=== PATIENT | female | born 1960 | race Caucasian/White ===

== ENCOUNTER 2024-05-04 07:14 | Observation (INO) | payer BC, MEDICAID ==
[2024-05-04] MEDS ORDERED: Naloxone 0.4 MG/ML SDV IVPUSH PRN (07:46)
[2024-05-04 07:57] LABS: BASOPHILS ABSOLUTE AUTO 0.1 K/mm3 (0.0-0.2); BASOPHILS PERCENT AUTO 0.5 % (0.0-1.0); EOSINOPHILS PERCENT AUTO 0.1 % (0.0-6.0); HEMATOCRIT 45.6 % (37.0-47.0); HEMOGLOBIN 14.6 gm/dl (12.0-16.0); IMMATURE GRAN ABSOLUTE AUTO 0.03 K/mm3 (0.00-0.05); IMMATURE GRAN PERCENT AUTO 0.3 % (0.0-0.4); LYMPHOCYTES ABSOLUTE AUTO 2.3 K/mm3 (1.0-4.8); LYMPHOCYTES PERCENT AUTO 23.6 % (24.0-44.0); MEAN CORPUSCULAR HEMOGLOBIN 29.6 pg (28.0-32.0); MEAN CORPUSCULAR VOLUME 92.3 fl (83.0-99.0); MEAN PLATELET VOLUME 9.9 fl (9.4-12.3); MONOCYTES ABSOLUTE AUTO 0.3 K/mm3 (0.0-0.8); MONOCYTES PERCENT AUTO 3.5 % (0.0-8.0); NEUTROPHILS ABSOLUTE AUTO 7.1 K/mm3 (1.8-7.7); PLATELET COUNT,PLT 377 K/mm3 (150-400); RED BLOOD CELL COUNT 4.94 M/mm3 (4.10-5.30); WHITE BLOOD CELL COUNT,WBC 9.84 K/mm3 (3.9-11.3)
[2024-05-04] MEDS: Ondansetron 4 MG/2 ML SDV IVPUSH ONE ×2 (08:06→09:13)
[2024-05-04] MEDS: HYDROmorphone 1 MG/ML Syringe IVPUSH ONE ×2 (08:06→10:13)
[2024-05-04] MEDS: Sodium Chloride 0.9% 1,000 ML IV ONE (08:07)
[2024-05-04 08:24] LABS: A/G RATIO 0.9 (1-2); ALBUMIN 3.4 g/dl (3.4-5.0); ANION GAP 13.1 (5-15); BILIRUBIN TOTAL 0.3 mg/dL (0.2-1.0); BUN/CREATININE RATIO 12.5 (14-18); CALCIUM 9.8 mg/dL (8.5-10.1); CREATININE 0.8 mg/dL (0.55-1.02); EST CRCL DRUG DOSING (CG) 57.67 mL/min; POTASSIUM,K 4.1 mEq/L (3.5-5.1); PROTEIN TOTAL,TP 7.3 g/dl (6.4-8.2)
[2024-05-04] MEDS: metroNIDAZOLE/Normal Saline 500 MG in Premix Bag 1 BAG IV ONE (08:49)
[2024-05-04] MEDS: Levofloxacin/Dextrose 5%-Water 750 MG in Premix Bag 1 BAG IV ONE (08:49)
[2024-05-04] MEDS: Sodium Chloride 0.9% 1,000 ML IV SCH (09:11)
[2024-05-04] MEDS: Metoclopramide 10 MG/2 ML SDV IVPUSH ONE (09:59)
[2024-05-04] MEDS ORDERED: Sodium Chloride 0.9% 10 ML Syringe FLUSH PRN (10:37)
[2024-05-04] MEDS ORDERED: Acetaminophen 325 MG Tab PO PRN (10:37)
[2024-05-04] MEDS ORDERED: HYDROmorphone 0.5 MG/0.5 ML Syringe IVPUSH PRN (10:37)
[2024-05-04] MEDS: Lactated Ringers 1,000 ML IV SCH (12:14)
[2024-05-04] MEDS: Ondansetron 4 MG Tab.DIS PO PRN (12:14)
[2024-05-04] MEDS: Ibuprofen 600 MG Tab PO PRN (16:14)
[2024-05-04] MEDS ORDERED: 50% Dextrose in Water 50 ML Syringe IVPUSH PRN (18:46)
[2024-05-04] MEDS ORDERED: Glucagon,Human Recombinant 1 MG Vial IM PRN (18:46)
[2024-05-04] MEDS: LORazepam 2 MG/ML SDV IVPUSH PRN (18:54)
[2024-05-04] MEDS: metroNIDAZOLE/Normal Saline 500 MG in Premix Bag 1 BAG IV SCH (19:42)
[2024-05-04] MEDS: Insulin Lispro 100 Unit/ML 3 ML KwikPen SUBCUT SCH (20:23)
[2024-05-05 04:28] LABS: BASOPHILS PERCENT AUTO 0.2 % (0.0-1.0); EOSINOPHILS PERCENT AUTO 0.1 % (0.0-6.0); HEMATOCRIT 39.1 % (37.0-47.0); HEMOGLOBIN 12.5 gm/dl (12.0-16.0); IMMATURE GRAN ABSOLUTE AUTO 0.04 K/mm3 (0.00-0.05); IMMATURE GRAN PERCENT AUTO 0.3 % (0.0-0.4); LYMPHOCYTES ABSOLUTE AUTO 1.7 K/mm3 (1.0-4.8); LYMPHOCYTES PERCENT AUTO 13.2 % (24.0-44.0); MEAN CORPUSCULAR VOLUME 93.8 fl (83.0-99.0); MEAN PLATELET VOLUME 10.1 fl (9.4-12.3); MONOCYTES ABSOLUTE AUTO 0.3 K/mm3 (0.0-0.8); MONOCYTES PERCENT AUTO 2.4 % (0.0-8.0); NEUTROPHILS ABSOLUTE AUTO 10.8 K/mm3 (1.8-7.7); NEUTROPHILS PERCENT AUTO 83.8 % (41.0-71.0); PLATELET COUNT,PLT 275 K/mm3 (150-400); RED BLOOD CELL COUNT 4.17 M/mm3 (4.10-5.30); WHITE BLOOD CELL COUNT,WBC 12.89 K/mm3 (3.9-11.3)
[2024-05-05 04:48] LABS: INR 1.07; PROTHROMBIN TIME 11.3 SECONDS (9.7-12.0)
[2024-05-05 05:02] LABS: A/G RATIO 0.8 (1-2); ALBUMIN 2.6 g/dl (3.4-5.0); ANION GAP 11.5 (5-15); BILIRUBIN TOTAL 0.7 mg/dL (0.2-1.0); CALCIUM 8.6 mg/dL (8.5-10.1); CREATININE 0.8 mg/dL (0.55-1.02); EST CRCL DRUG DOSING (CG) 57.67 mL/min; MAGNESIUM 1.4 mg/dL (1.8-2.4); PHOSPHORUS 2.9 mg/dL (2.6-4.7); POTASSIUM,K 3.5 mEq/L (3.5-5.1)
[2024-05-05] MEDS: Levofloxacin/Dextrose 5%-Water 750 MG in Premix Bag 1 BAG IV SCH (05:29)
[2024-05-05] MEDS ORDERED: Ketorolac 30 MG/ML SDV ONE (06:22)
[2024-05-05] MEDS ORDERED: Sugammadex Sodium 200 MG/2 ML VIAL IV ONE (06:22)
[2024-05-05] MEDS ORDERED: Lidocaine 2% 5 ML SDV ONE (06:22)
[2024-05-05] MEDS ORDERED: Propofol 200 MG/20 ML SDV ONE (06:22)
[2024-05-05] MEDS ORDERED: Ondansetron 4 MG/2 ML SDV ONE (06:22)
[2024-05-05] MEDS ORDERED: Dexamethasone 4 MG/ML 5 ML MDV ONE (06:22)
[2024-05-05] MEDS ORDERED: fentaNYL 100 MCG/2 ML SDV ONE ×2 (06:23→07:25)
[2024-05-05] MEDS ORDERED: Rocuronium 50 MG/5 ML Vial ONE ×2 (07:26→08:00)
[2024-05-05] MEDS ORDERED: fentaNYL 100 MCG/2 ML SDV IVPUSH PRN (08:01)
[2024-05-05] MEDS ORDERED: HYDROmorphone 0.5 MG/0.5 ML Syringe IVPUSH PRN (08:01)
[2024-05-05] MEDS ORDERED: Lactated Ringers 1,000 ML ONE (08:05)
[2024-05-05] MEDS: Bupivacaine 0.5% 30 ML SDV ONE (10:45)
[2024-05-05] MEDS: EPINEPHrine 1 MG/ML SDV ONE (10:46)
[2024-05-05] MEDS: Lidocaine 1% 30 ML SDV ONE (10:47)
[2024-05-05] MEDS: Acetaminophen 325 MG Tab PO SCH (11:58)
[2024-05-05] MEDS: Ibuprofen 600 MG Tab PO SCH (11:58)
[2024-05-05] MEDS: Ondansetron 4 MG/2 ML SDV IVPUSH PRN (17:16)
[2024-05-06] MEDS: oxyCODONE 5 MG Tab PO PRN (04:37)
[2024-05-06 04:59] LABS: BASOPHILS ABSOLUTE AUTO 0.1 K/mm3 (0.0-0.2); BASOPHILS PERCENT AUTO 0.6 % (0.0-1.0); EOSINOPHILS PERCENT AUTO 0.2 % (0.0-6.0); HEMATOCRIT 32.3 % (37.0-47.0); IMMATURE GRAN ABSOLUTE AUTO 0.02 K/mm3 (0.00-0.05); IMMATURE GRAN PERCENT AUTO 0.2 % (0.0-0.4); LYMPHOCYTES PERCENT AUTO 21.6 % (24.0-44.0); MEAN CORPUSCULAR HEMOGLOBIN 29.8 pg (28.0-32.0); MEAN CORPUSCULAR HGB CONC 33.7 g/dl (32.0-36.0); MEAN CORPUSCULAR VOLUME 88.3 fl (83.0-99.0); MONOCYTES ABSOLUTE AUTO 0.3 K/mm3 (0.0-0.8); MONOCYTES PERCENT AUTO 3.7 % (0.0-8.0); NEUTROPHILS ABSOLUTE AUTO 6.8 K/mm3 (1.8-7.7); NEUTROPHILS PERCENT AUTO 73.7 % (41.0-71.0); PLATELET COUNT,PLT 257 K/mm3 (150-400); RED BLOOD CELL COUNT 3.66 M/mm3 (4.10-5.30); WHITE BLOOD CELL COUNT,WBC 9.28 K/mm3 (3.9-11.3)
[2024-05-06 05:01] LABS: HEMOGLOBIN 10.9 gm/dl (12.0-16.0)
[2024-05-06 05:07] LABS: A/G RATIO 0.7 (1-2); ALBUMIN 2.3 g/dl (3.4-5.0); ANION GAP 12.4 (5-15); BILIRUBIN TOTAL 0.5 mg/dL (0.2-1.0); CALCIUM 8.2 mg/dL (8.5-10.1); CREATININE 0.7 mg/dL (0.55-1.02); EST CRCL DRUG DOSING (CG) 65.9 mL/min; POTASSIUM,K 3.4 mEq/L (3.5-5.1); PROTEIN TOTAL,TP 5.8 g/dl (6.4-8.2)
[2024-05-06] MEDS: Levofloxacin/Dextrose 5%-Water 750 MG in Premix Bag 1 BAG IV SCH (06:10)
[2024-05-06] MEDS: Polyethylene Glycol 3350 Powder 17 GM Packet PO SCH (08:20)
[2024-05-06] MEDS: Enoxaparin 40 MG/0.4 ML Syringe SUBCUT ONE (08:21)
== END 2024-05-06 13:30 | disposition home or self-care (01) ==
LOC: JD.ED 07:14 → JD.MS 10:37
PROVIDERS: ADMIT Surgery; ATTEND Surgery
DX: K80.12 Calculus of gallbladder with acute and chronic cholecystitis without obstruction (principal); K82.A1 Gangrene of gallbladder in cholecystitis; E11.65 Type 2 diabetes mellitus with hyperglycemia; E78.00 Pure hypercholesterolemia, unspecified; J45.909 Unspecified asthma, uncomplicated; F03.90 Unspecified dementia, unspecified severity, without behavioral disturbance, psychotic disturbance, mood disturbance, and anxiety; Z79.899 Other long term (current) drug therapy; Z88.0 Allergy status to penicillin; Z88.1 Allergy status to other antibiotic agents; Z88.2 Allergy status to sulfonamides
CPT/HCPCS: 00790; 36415; 76705; 76705-26; 80053; 82947; 83690; 83735; 84100; 85025; 85610; 94760; 94761; 96361; 96365; 96366; 96368; 96375; 96376; 99285-25; A9270-GY; G0378; J0171; J0665; J1100; J1171; J1650; J1815; J1836; J1885; J1956; J2060; J2405; J2704; J2765; J3010; J3490; J7030; J7120

== ENCOUNTER 2024-05-14 13:42 | Emergency (ER) | payer BC | END 2024-05-14 14:50 | disposition home or self-care (01) | LOC: JD.ED 13:42 | DX: G89.18 Other acute postprocedural pain (principal); R10.9 Unspecified abdominal pain; J45.909 Unspecified asthma, uncomplicated; E78.00 Pure hypercholesterolemia, unspecified; E66.9 Obesity, unspecified; Z88.0 Allergy status to penicillin; Z88.1 Allergy status to other antibiotic agents; Z88.2 Allergy status to sulfonamides; Z88.8 Allergy status to other drugs, medicaments and biological substances; Z86.16 Personal history of COVID-19; Z90.49 Acquired absence of other specified parts of digestive tract | CPT/HCPCS: 99283 ==